=== PATIENT | male | born 1995 | race Caucasian/White ===

== ENCOUNTER 2023-04-25 15:02 | Emergency (ER) | payer OTHER ==
[~2023-04-25] VITALS: Ht 177.8 cm; Wt 86.1 kg
[2023-04-25] MEDS ORDERED: POVIDONE IODINE 0.5 OZ/BTL TOP ONE (15:15)
[2023-04-25] MEDS ORDERED: SODIUM CHLORIDE 1,000 ML BTL IR ONE (15:15)
[2023-04-25] MEDS ORDERED: Diph, Acellular Pertussis, Tet 0.5 ML/VIAL (Tdap) SDV IM ONE (15:15)
[2023-04-25] MEDS ORDERED: LIDOcaine HCl 1% (Local Anesth.) 20 ML VIAL STI STA (15:15)
[2023-04-25] MEDS ORDERED: LIDOcaine HCl 1% (Local Anesth.) 20 ML VIAL IM STA (15:16)
[2023-04-25] MEDS ORDERED: cefTRIAXone SODIUM 1 GM/VIAL SDV IM ONE (15:20)
[2023-04-25] MEDS ORDERED: CEPHALEXIN500 M1 PO (15:41)
[2023-04-25] MEDS ORDERED: MUPIROCIN2 % EX (15:41)
[2023-04-25] MEDS ORDERED: MUPIROCIN (PSEUDOMONAS FLUORES 22 GM/TUBE TUBE TOP ONE (15:45)
[2023-04-25] MEDS ORDERED: NAPROXEN500 MG PO (16:47)
[2023-04-25 16:56] VITALS: BP 133/104
== END 2023-04-25 17:16 | disposition home or self-care (01) | DRG 605 ==
LOC: ED 15:02
PROC: 0HQMXZZ Repair Right Foot Skin, External Approach (ICD-10-PCS; principal; 2023-04-25)
PROC: 0HDRXZZ Extraction of Toe Nail, External Approach (ICD-10-PCS; 2023-04-25)
DX: S91.211A Laceration without foreign body of right great toe with damage to nail, initial encounter (principal); S92.424A Nondisplaced fracture of distal phalanx of right great toe, initial encounter for closed fracture; W20.8XXA Other cause of strike by thrown, projected or falling object, initial encounter; Y92.89 Other specified places as the place of occurrence of the external cause; Y99.0 Civilian activity done for income or pay